=== PATIENT | female | born 1995 | race African-American/Black ===

== ENCOUNTER 2019-02-02 00:52 | Emergency (ER) | payer SELFPAY ==
[~2019-02-02] VITALS: Ht 165.1 cm; Wt 54.5 kg
[2019-02-02 01:05] VITALS: Ht 165.1 cm; Wt 54.5 kg
[2019-02-02] MEDS ORDERED: HYDROCODONE-A1 UDTA2 PO (01:59)
[2019-02-02 02:44] VITALS: BP 116/78
== END 2019-02-02 02:44 | disposition home or self-care (01) ==
LOC: D.ER 00:52
DX: T16.2XXA Foreign body in left ear, initial encounter (principal); X58.XXXA Exposure to other specified factors, initial encounter; Y93.89 Activity, other specified; Y92.89 Other specified places as the place of occurrence of the external cause; S00.412A Abrasion of left ear, initial encounter

== ENCOUNTER 2019-03-12 19:59 | Emergency (ER) | payer SELFPAY ==
[~2019-03-12] VITALS: Ht 165.1 cm; Wt 68.2 kg
[~2019-03-12 19:59] MED LIST: HYDROCODONE-A1 UDTA2 PO
[2019-03-12 20:02] VITALS: Ht 165.1 cm; Wt 68.2 kg
[2019-03-12] MEDS ORDERED: CORTISPORIN OTI10 M1 EACH EAR (21:28)
[2019-03-12 22:06] VITALS: BP 104/64
== END 2019-03-12 22:07 | disposition home or self-care (01) ==
LOC: D.ER 19:59
DX: H60.91 Unspecified otitis externa, right ear (principal)

== ENCOUNTER 2020-02-06 03:20 | Emergency (ER) | payer SELFPAY ==
[~2020-02-06] VITALS: Ht 165.1 cm; Wt 65.9 kg
[~2020-02-06 03:20] MED LIST changes: +CORTISPORIN OTI10 M1 EACH EAR
[2020-02-06 04:43] LABS: BASOPHILS 0.2 % (0-2); HEMATOCRIT 38.9 % (36.0-48.0); IMMATURE GRANULOCYTES 0.2 % (0-5); LYMPHOCYTES 22.8 % (15-50); MCH 31.3 pg (26.0-34.0); MCHC 33.4 g/dL (31.0-37.0); MCV 93.7 fL (80.0-100.0); MEAN PLATELET VOLUME 8.7 fL (7.4-10.4); MONOCYTES 10.9 % (2-11); NEUTROPHILS 62.9 % (40-80); PLATELET COUNT 270 10x3/uL (130-400); RBC 4.15 10x6/uL (4.00-5.40); RDW 12.4 % (11.5-14.5); WBC 6.6 10x3/uL (4.8-10.8)
[2020-02-06 04:45] LABS: ANION GAP 11.3 mmol/L (8-16); CALCIUM 8.4 mg/dL (8.5-10.1); CARBON DIOXIDE 24.3 mmol/L (21.0-32.0); POTASSIUM - SERUM 3.6 mmol/L (3.5-5.1)
[2020-02-06 04:54] LABS: BILIRUBIN NEGATIVE (NEGATIVE); KETONE NEGATIVE (NEGATIVE); NITRITE NEGATIVE (NEGATIVE); UROBILINOGEN NORMAL (NORMAL)
[2020-02-06 04:56] LABS: BACTERIA FEW /hpf (NEGATIVE); EPITHELIAL CELLS 0-5 /hpf (0-5); RED CELLS - URINE 0-5 /hpf (0-5); WHITE CELLS - URINE 0-5 /hpf (NEGATIVE)
[2020-02-06 04:56] LABS: BILIRUBIN - TOTAL 0.17 mg/dL (0.2-1.3); PROTEIN - SERUM 7.3 g/dL (6.4-8.2)
== END 2020-02-06 05:20 | disposition home or self-care (01) ==
LOC: D.ER 03:20
PROVIDERS: Family Medicine
DX: N93.8 Other specified abnormal uterine and vaginal bleeding (principal); N92.6 Irregular menstruation, unspecified